=== PATIENT | male | born 1935 | race Caucasian/White ===

== ENCOUNTER → 2018-02-15 | Outpatient (CLI) | payer MEDICARE, OTHER ==
[2018-02-15 13:19] LABS: ABSOLUTE BASOPHILS # (AUTO) 0.1 10^3/uL (0.0-0.2); ABSOLUTE EOSINOPHILS # (AUTO) 0.2 10^3/uL (0.0-0.6); ABSOLUTE LYMPHOCYTES (AUTO) 2.6 10^3/uL (0.5-4.7); ABSOLUTE MONOCYTES (AUTO) 0.6 10^3/uL (0.1-1.4); ABSOLUTE NEUT (AUTO) 3.8 10^3/uL (1.7-8.2); BASOPHILS % (AUTO) 0.7 % (0-2); EOSINOPHILS % (AUTO) 2.6 % (0-6); HEMATOCRIT 41.1 % (37.9-51.0); HEMOGLOBIN 13.2 g/dL (13.5-17.0); LYMPHOCYTES % (AUTO) 35.9 % (13-45); MEAN CORPUSCULAR HEMOGLOBIN 28.3 pg (27.0-33.4); MEAN CORPUSCULAR HGB CONC 32.1 g/dL (32.0-36.0); MEAN CORPUSCULAR VOLUME 88 fl (80-97); MONOCYTES % (AUTO) 7.8 % (3-13); PLATELET COUNT 112 10^3/uL (150-450); RED BLOOD COUNT 4.67 10^6/uL (4.35-5.55); RED CELL DISTRIBUTION WIDTH 16.3 % (11.5-14.0); TOTAL CELLS COUNTED % (AUTO) 100 %; WHITE BLOOD COUNT 7.1 10^3/uL (4.0-10.5)
[2018-02-15 13:48] LABS: ALBUMIN 4.1 g/dL (3.5-5.0); ANION GAP 12 (5-19); BLOOD UREA NITROGEN 42 mg/dL (7-20); CALCIUM 9.1 mg/dL (8.4-10.2); CARBON DIOXIDE 31 mmol/L (22-30); CHLORIDE 99 mmol/L (98-107); GLUCOSE 279 mg/dL (75-110); POTASSIUM 4.4 mmol/L (3.6-5.0); SODIUM 141.6 mmol/L (137-145)
[2018-02-15 13:51] LABS: APPEARANCE,URINE CLEAR; BILIRUBIN,URINE NEGATIVE (NEGATIVE); COLOR,URINE YELLOW; GLUCOSE, URINE >=500 mg/dL (NEGATIVE); KETONES,URINE NEGATIVE (NEGATIVE); LEUKOCYTE ESTERASE,URINE NEGATIVE (NEGATIVE); NITRITE,URINE NEGATIVE (NEGATIVE); PROTEIN,URINE >=500 mg/dL (NEGATIVE); URINE SPECIFIC GRAVITY 1.016
[2018-02-15 15:01] LABS: UR PRO/CREAT RATIO RESULT 9.4 mg/mg (0.0-0.2); URINE CREATININE 83.1 mg/dL (22-328); URINE PROTEIN 778.6 mg/dL (<12)
[2018-02-15 15:04] LABS: ERYTHROCYTE SEDIMENTATION RATE 44 mm/hr (0-20)
[2018-02-16 07:42] LABS: COMPLEMENT C3 120 mg/dL (82-167); COMPLEMENT C4 21 mg/dL (14-44); HEPATITIS C VIRUS AB <0.1 s/co ratio (0.0-0.9)
[2018-02-16 11:15] LABS: GLOMERULAR BASMENT MEMBRANE AB 4 units (0-20)
[2018-02-16 16:39] LABS: A/G RATIO 0.9 (0.7-1.7); ALBUMIN 2 3.4 g/dL (2.9-4.4); ALPHA-2-GLOBULIN 2 0.8 g/dL (0.4-1.0); BETA GLOBULINS 1.2 g/dL (0.7-1.3); GAMMA GLOBULIN 1.7 g/dL (0.4-1.8); MONOCLONAL SPIKE Not Observed g/dL (Not Observed); PROTEIN TOTAL SERUM 7.4 g/dL (6.0-8.5)
[2018-02-16 17:37] LABS: ANTIMYELOPEROXIDASE (MPO) AB <9.0 U/mL (0.0-9.0); ANTIPROTEINASE 3 (PR-3) AB <3.5 U/mL (0.0-3.5); CYTOPLASMIC (C-ANCA) <1:20 titer (Neg:<1:20)
[2018-02-17 08:15] LABS: ATYPICAL PANCA <1:20 titer (Neg:<1:20); PERINUCLEAR (P-ANCA) <1:20 titer (Neg:<1:20)
== END ==
LOC: OD 11:48
PROVIDERS: ATTEND Internal Medicine Nephrology
DX: N18.4 Chronic kidney disease, stage 4 (severe) (principal); D64.9 Anemia, unspecified; R80.9 Proteinuria, unspecified; E11.9 Type 2 diabetes mellitus without complications
CPT/HCPCS: 36415; 80048; 81001; 82040; 82306; 82570; 82595; 83516; 83970; 84100; 84156; 84165; 85025; 85652; 86038; 86160; 86256; 86317; 86803; 86804

== ENCOUNTER 2018-02-25 23:32 | Emergency (ER) | payer MEDICARE, OTHER ==
--- NOTE | 2018-02-26 01:13 | ER Document Report ---
ED General - General Chief Complaint: Other Stated Complaint: EVALUATION Time Seen by Provider: 02/26/18 00:27 Notes: Patient is an 82-year-old male who is brought to the ER by his family because he got an argument with his about taking his insulin. Paramax arrived he did eventually take his Lantus. According to the and other family member the patient has been agitated hard to deal with and this has been progressively worsening for 6 months. Not sure if he actually has dementia or not. Has not been formally diagnosed. He went to the vocational rehabilitation counselor today who told them to come to the ER for a mental health evaluation. He has no previous history of mental health issues whatsoever. I talked to the patient he says he is just very frustrated because everybody is trying to do stuff for him. He says he is mad because his driver starting gate's license was taken away. He says that he wants to be able do things on his own without other people's help. Denies any recent fevers or illness. He does have a scab over his forehead and nose which she says is not from a fall but where he bumped his head on the bucket for the dehumidifier when he was changing it. Patient does have a cane. His gait has progressively become more unsteady over last 6 months and has had a resting tremor that is progressively worsening. He is followed by Dr. Demarco. Patient's says that Dr. Demarco and says that he is happy to help in any way possible and that she just has to let him know. He is arrange for home health as well as physical therapy. Patient has no other complaints at this time. TRAVEL OUTSIDE OF THE [place] IN LAST 30 DAYS: No - Related Data Allergies/Adverse Reactions: ezetimibe [From Vytorin 10-10] Allergy (Verified 02/21/16 22:15) Unknown reaction simvastatin [From Vytorin 10-10] Allergy (Verified 02/21/16 22:15) Unknown reaction Pqtprno-Izr-Moc Reductase Inhibitor Allergy (Verified 02/21/16 22:15) PANCREATITIS Past Medical History - Social History Smoking Status: Never Smoker Chew tobacco use (# tins/day): No Frequency of alcohol use: None Drug Abuse: None Family History: Reviewed & Not Pertinent Patient has suicidal ideation: No Patient has homicidal ideation: No - Past Medical History Cardiac Medical History: Denies: Hx Heart Attack, Hx Hypertension Pulmonary Medical History: Denies: Hx Asthma Neurological Medical History: Denies: Hx Cerebrovascular Accident, Hx Seizures Endocrine Medical History: Reports: Hx Diabetes Mellitus Type 1, Hx Diabetes Mellitus Type 2 Renal/ Medical History: Denies: Hx Peritoneal Dialysis GI Medical History: Denies: Hx Hepatitis, Hx Hiatal Hernia, Hx Ulcer Musculoskeltal Medical History: Reports Hx Arthritis Infectious Medical History: Denies: Hx Hepatitis Past Surgical History: Reports: Hx Appendectomy, Hx Cardiac Catheterization, Hx Cholecystectomy, Hx Orthopedic Surgery - L foot. Denies: Hx Open Heart Surgery , Hx Pacemaker - Immunizations Hx Diphtheria, Pertussis, Tetanus Vaccination: - >5 Review of Systems - Review of Systems Notes: My Normal Review Basic REVIEW OF SYSTEMS: CONSTITUTIONAL : Denies fever, chills, or sweats. Denies recent illness. EENT: Denies eye, ear, throat, or mouth pain or symptoms. Denies nasal or sinus congestion. CARDIOVASCULAR: Denies chest pain. RESPIRATORY: Denies cough, cold, or chest congestion. Denies shortness of breath, difficulty breathing, or wheezing. GASTROINTESTINAL: Denies abdominal pain. Denies nausea, vomiting, or diarrhea. Denies constipation. Last BM: GENITOURINARY: Denies difficulty urinating, painful urination, burning, frequency, or blood in urine. MUSCULOSKELETAL: Denies neck or back pain or joint pain or swelling. SKIN: Denies rash or skin lesions. NEUROLOGICAL: Denies altered mental status or loss of consciousness. Denies headache. Denies weakness or paralysis or loss of use of either side. Denies problems with gait or speech. Denies sensory or motor loss. Has resting tremor. PSYCHIATRIC: Agitation ALL OTHER SYSTEMS REVIEWED AND NEGATIVE. Physical Exam - Vital signs Vitals: Temp Pulse Resp BP Pulse Ox 98.0 F 51 L 20 152/76 H 93 02/25/18 23:47 02/25/18 23:47 02/25/18 23:47 02/25/18 23:47 02/25/18 23:47 - Notes Notes: General Appearance: Well nourished, alert, cooperative, no acute distress, no obvious discomfort. Patient will answer all my questions appropriately. He does become agitated when I ask him about why he does not want people to help him. Vitals: reviewed, See vital signs table. Head: no swelling or tenderness to the head Eyes: PERRL, EOMI, Conjuctiva clear Mouth: No decreasd moisture Neck: Supple, no neck tenderness, No thyromegaly Lungs: No wheezing, No rales, No rhonci, No accessory muscle use, good air exchange bilaterally. Heart: Normal rate, Regular rythm, No murmur, no rub Abdomen: Normal BS, soft, No rigidity, No abdominal tenderness, No guarding, no rebound, no abdominal masses, no organomegaly Extremities: strength 5/5 in all extremities, good pulses in all extremities, no swelling or tenderness in the extremities, no edema. Skin: warm, dry, appropriate color, no rash Neuro: speech clear, oriented x 3, normal affect, responds appropriately to questions. Cranial nerves II through XII are intact. Distal sensation intact. Patient's gait is very guarded and slow and uses a cane when walking. Patient does stumble someone sitting back down into the wheelchair. Patient does have a resting tremor. Course - Re-evaluation Re-evalutation: 02/27/18 05:17 I do not see any other sources from medical standpoint of confusion or agitation. When I talked the patient he is not really confused he is just agitated and frustrated with the fact that he cannot do everything on his own and he still seems to want to. I talked to the patient and his and their neighbor at length and says he will be more cooperative with his . Also talked to him about his tremor informed him that this is making things worse. 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 They said they will follow-up with her primary care doctor talked to them about further treatment options for this. Patient to return to ER if he has any further concerns. Patient and agree with plan and he will be discharged home. Patient seems more understanding of this and agrees to be cooperative with . Dictation of this chart was performed using voice recognition software; therefore, there may be some unintended grammatical errors. - Vital Signs Vital signs: Temp Pulse Resp BP Pulse Ox 98.0 F 55 L 16 145/72 H 95 02/25/18 23:47 02/26/18 03:10 02/26/18 03:10 02/26/18 03:10 02/26/18 03:10 - Laboratory Result Diagrams: 02/26/18 01:40 02/26/18 01:40 Laboratory results interpreted by me: 02/26/18 02/26/18 01:40 01:40 Hgb 12.8 L RDW 17.3 H Plt Count 136 L Sodium 148.9 H Potassium 5.5 H Chloride 108 H BUN 42 H Creatinine 1.93 H Est GFR ( Amer) 41 L Est GFR (Non-Af Amer) 34 L Glucose 229 H Direct Bilirubin 0.7 H Alkaline Phosphatase 131 H - EKG Interpretation by Me Additional EKG results interpreted by me: 02/26/18 01:52 EKG is reviewed and interpreted by me. EKG has a large amount of baseline artifact probably related to the patient's tremor. The computer reads as atrial fibrillation but that is because the computer is reading a tremor as possible beats. The patient's rhythm strip only to shows that the patient is not in A. fib. Is difficult to tell exactly where the P waves are on this strip. Difficult to tell if the patient has a NH block or not. QRS durations are within normal range. QTc intervals are prolonged. I do not see any obvious ST segment elevation or depression. 02/26/18 02:30 EKG #2 is reviewed and interpreted by me. EKG shows what appears to be sinus bradycardia with a rate of [address] segment elevation or depression. No ischemic T-wave inversions. NH interval is difficult to determine as it is very difficult to see the PE waves. Patient does not have a third-degree block as his there are intervals are irregular. There is no ST segment elevation or depression. QRS duration QTc intervals are within normal range. Discharge - Discharge Clinical Impression: Tremor, Agitation Condition: Good Disposition: HOME, SELF-CARE Additional Instructions: Please continue to utilize the physical therapy and home health. Please follow up with your doctor and talk to them about further medications to help with the tremor. Please return to the ER if you have fevers, vomiting, or have any further concerns.
--- NOTE | 2018-02-26 01:42 | RADIOLOGY REPORT (SQ) ---
EXAM DESCRIPTION: CT HEAD WITHOUT CLINICAL HISTORY: 82 years Male, agitation COMPARISON: 09.26.15 TECHNIQUE: No contrast. Coronal and sagittal reformat. This exam was performed according to our departmental dose-optimization program, which includes automated exposure control, adjustment of the mA and/or kV according to patient size and/or use of iterative reconstruction technique. FINDINGS: No hemorrhage or infarct. No mass, mass effect, or midline shift. Mild cerebral volume loss Brain and extra-axial structures appear otherwise intact. IMPRESSION: No acute findings.
[2018-02-26 02:04] LABS: ALANINE AMINOTRANSFERASE 22 U/L (21-72); ALKALINE PHOSPHATASE 131 U/L (38-126); ANION GAP 11 (5-19); ASPARTATE AMINO TRANSFERASE 26 U/L (17-59); BILIRUBIN,DIRECT 0.7 mg/dL (0.0-0.4); BILIRUBIN,TOTAL 0.8 mg/dL (0.2-1.3); BLOOD UREA NITROGEN 42 mg/dL (7-20); CALCIUM 9.5 mg/dL (8.4-10.2); CARBON DIOXIDE 30 mmol/L (22-30); CHLORIDE 108 mmol/L (98-107); GLUCOSE 229 mg/dL (75-110); POTASSIUM 5.5 mmol/L (3.6-5.0); SODIUM 148.9 mmol/L (137-145); TOTAL PROTEIN 7.5 g/dL (6.3-8.2)
[2018-02-26 02:09] LABS: ABSOLUTE BASOPHILS # (AUTO) 0.1 10^3/uL (0.0-0.2); ABSOLUTE EOSINOPHILS # (AUTO) 0.2 10^3/uL (0.0-0.6); ABSOLUTE LYMPHOCYTES (AUTO) 2.3 10^3/uL (0.5-4.7); ABSOLUTE MONOCYTES (AUTO) 0.7 10^3/uL (0.1-1.4); ABSOLUTE NEUT (AUTO) 3.7 10^3/uL (1.7-8.2); EOSINOPHILS % (AUTO) 2.2 % (0-6); HEMATOCRIT 39.6 % (37.9-51.0); HEMOGLOBIN 12.8 g/dL (13.5-17.0); LYMPHOCYTES % (AUTO) 33.2 % (13-45); MEAN CORPUSCULAR HEMOGLOBIN 29.2 pg (27.0-33.4); MEAN CORPUSCULAR HGB CONC 32.4 g/dL (32.0-36.0); MEAN CORPUSCULAR VOLUME 90 fl (80-97); MONOCYTES % (AUTO) 9.5 % (3-13); PLATELET COUNT 136 10^3/uL (150-450); RED BLOOD COUNT 4.38 10^6/uL (4.35-5.55); RED CELL DISTRIBUTION WIDTH 17.3 % (11.5-14.0); SEGMENTED NEUTROPHILS % (AUTO) 54.1 % (42-78); TOTAL CELLS COUNTED % (AUTO) 100 %; WHITE BLOOD COUNT 6.9 10^3/uL (4.0-10.5)
[2018-02-26 03:12] VITALS: BP 145/72
--- NOTE | 2018-02-26 09:47 | EKG REPORT ---
SEVERITY:- ABNORMAL ECG - ATRIAL FIB LOW VOLTAGE IN FRONTAL LEADS BORDERLINE R WAVE PROGRESSION, ANTERIOR LEADS NONSPECIFIC T ABNORMALITIES, LATERAL LEADS : Confirmed by: Roby Reyes MD 26-Feb-2018 09:46:18
--- NOTE | 2018-02-26 09:47 | EKG REPORT ---
SEVERITY:- ABNORMAL ECG - ATRIAL FIBRILLATION LOW VOLTAGE THROUGHOUT ABNRM R PROG, CONSIDER ASMI OR LEAD PLACEMENT BORDERLINE T ABNORMALITIES, ANTERIOR LEADS : Confirmed by: Roby Reyes MD 26-Feb-2018 09:47:12
== END 2018-02-26 03:12 | disposition home or self-care (01) ==
LOC: ER 23:32
DX: R25.1 Tremor, unspecified (principal); R45.1 Restlessness and agitation; E11.9 Type 2 diabetes mellitus without complications; Z79.4 Long term (current) use of insulin
CPT/HCPCS: 36415; 70450; 80053; 84484; 85025; 93005; 93010; 99285

== ENCOUNTER 2018-03-11 13:49 | Inpatient (IN) | payer MEDICARE, OTHER ==
--- NOTE | 2018-03-11 14:32 | ER Document Report ---
ED General - General Stated Complaint: LOW HEART RATE Time Seen by Provider: 03/11/18 14:08 Mode of Arrival: Medic Information source: Patient, Relative, [facility] Records Notes: 82-year-old male with history of hypertension, diabetes, reported known bradycardia presents via EMS from home after his home health aide found his heart rate to be in the 40s. Upon my exam patient is expressing frustration. He is banging his cane on the bed. He states that he has always had a low heart rate. He denies any associated symptoms including shortness of breath, chest pain, dizziness, nausea, vomiting, abdominal pain. Patient states that he was recently placed on a new blood pressure medication at the beginning of this month. He is currently taking lisinopril and hydrochlorothiazide. He is unclear what dosing he is taking. Patient's primary care physician is Dr. Benitez. He does not currently have a fitness management director. Patient is alert and oriented to self and place. He states it is January 1989. TRAVEL OUTSIDE OF THE [place] IN LAST 30 DAYS: No - HPI Onset: Just prior to arrival Quality of pain: No pain Pain Level: Denies Associated symptoms: None Exacerbated by: Denies Relieved by: Denies Similar symptoms previously: Yes Recently seen / treated by doctor: Yes - Related Data Allergies/Adverse Reactions: ezetimibe [From Vytorin 10-10] Allergy (Verified 02/21/16 22:15) Unknown reaction simvastatin [From Vytorin 10-10] Allergy (Verified 02/21/16 22:15) Unknown reaction Nbpyvym-Jok-Dpy Reductase Inhibitor Allergy (Verified 02/21/16 22:15) PANCREATITIS Past Medical History - General Information source: Patient, [facility] Records - Social History Smoking Status: Never Smoker Chew tobacco use (# tins/day): No Frequency of alcohol use: None Drug Abuse: None Lives with: Spouse/Significant other Family History: Reviewed & Not Pertinent Patient has suicidal ideation: No Patient has homicidal ideation: No - Past Medical History Cardiac Medical History: Reports: Hx Hypertension, Hx Heart Murmur Denies: Hx Heart Attack Pulmonary Medical History: Denies: Hx Asthma Neurological Medical History: Denies: Hx Cerebrovascular Accident, Hx Seizures Endocrine Medical History: Reports: Hx Diabetes Mellitus Type 1, Hx Diabetes Mellitus Type 2 Renal/ Medical History: Denies: Hx Peritoneal Dialysis GI Medical History: Denies: Hx Hepatitis, Hx Hiatal Hernia, Hx Ulcer Musculoskeltal Medical History: Reports Hx Arthritis Infectious Medical History: Denies: Hx Hepatitis Past Surgical History: Reports: Hx Appendectomy, Hx Cardiac Catheterization, Hx Cholecystectomy, Hx Orthopedic Surgery - L foot. Denies: Hx Open Heart Surgery , Hx Pacemaker - Immunizations Hx Diphtheria, Pertussis, Tetanus Vaccination: - >5 Review of Systems - Review of Systems Notes: Patient denies fever, chills, nausea, vomiting, headache, ear pain, sore throat , cough, chest pain, shortness of breath, abdominal pain, back pain, dysuria, hematuria, rash, SI/HI. Physical Exam - Vital signs Vitals: Temp 97.5 F 03/11/18 13:52 Interpretation: Normal, Hypertensive, Bradycardic - General General appearance: Appears well, Alert In distress: None Notes: PHYSICAL EXAMINATION: GENERAL: Well-appearing, well-nourished and in no acute distress. HEAD: Atraumatic, normocephalic. EYES: Pupils equal round and reactive to light, extraocular movements intact, sclera anicteric, conjunctiva are normal. ENT: Nares patent, oropharynx clear without exudates. Moist mucous membranes. NECK: Normal range of motion, supple without lymphadenopathy LUNGS: Breath sounds clear to auscultation bilaterally and equal. No wheezes rales or rhonchi. Visibly dyspneic. No accessory muscle use HEART: bradycardic ABDOMEN: Soft, nontender, nondistended abdomen. No guarding, no rebound. No masses appreciated. Musculoskeletal: Normal range of motion, 1+ pitting edema. No cyanosis. NEUROLOGICAL: Cranial nerves grossly intact. Normal speech, normal gait. Normal sensory, motor exams PSYCH: Agitated. AO 2 SKIN: Warm, Dry, normal turgor, no rashes or lesions noted. Course - Re-evaluation Re-evalutation: Chest X-Ray 03/11/18 14:23 IMPRESSION: Extensive bibasilar opacities and effusions. Cardiac enlargement without overt failure. Laboratory 03/11/18 03/11/18 03/11/18 13:26 13:26 13:26 WBC 6.6 RBC 4.42 Hgb 12.6 L Hct 39.5 MCV 89 MCH 28.4 MCHC 31.8 L RDW 17.1 H Plt Count 115 L Seg Neutrophils % 64.8 Lymphocytes % 24.7 Monocytes % 9.1 Eosinophils % 0.8 Basophils % 0.6 Absolute Neutrophils 4.3 Absolute Lymphocytes 1.6 Absolute Monocytes 0.6 Absolute Eosinophils 0.1 Absolute Basophils 0.0 Sodium 146.7 H Potassium 6.0 H* Chloride 108 H Carbon Dioxide 26 Anion Gap 13 BUN 57 H Creatinine 1.89 H Est GFR ( Amer) 42 L Est GFR (Non-Af Amer) 34 L Glucose 148 H Calcium 8.9 Magnesium 2.6 H Total Bilirubin 0.6 Direct Bilirubin 0.6 H Neonat Total Bilirubin Not Reportable Neonat Direct Bilirubin Not Reportable Neonat Indirect Bili Not Reportable AST 58 ALT 28 Alkaline Phosphatase 151 H Creatine Kinase 161 CK-MB (CK-2) 3.86 Troponin I 0.016 NT-Pro-B Natriuret Pep 8190 H Total Protein 7.6 Albumin 4.0 03/11/18 14:34 82-year-old male presents from home via EMS after home health found his heart rate to be in the 40s. Upon arrival patient is alert and oriented 2. He is alert to self and place but disoriented to time. Patient was placed on monitoring and evaluation advisor and an EKG was obtained which showed the patient to be an atrial fibrillation at a rate of 45. Patient is currently hypertensive, hypoxic, bradycardic. Patient currently denying any symptoms. He is frustrated because he states 'I have had a low heart rate for my entire life". is not initially at the bedside so the initial history comes from the patient. She did come in and states the patient has been more confused, agitated recently. He is yelling at her in the room. She is on sure if he has a prior diagnosis of atrial fibrillation. He is not under any cardiology care at this time. Has been seen recently by nephrology and placed on Lisinopril/HCTZ at the beginning of this month. Patient with known renal insufficiency, not on dialysis. 03/11/18 15:32 Patient found to be hyperkalemic. K 6.0 increased from 5.5 02/2018. Calcium 1G, insulin IV 10 units and dextrose was administered. Psych consult obtained to assess capacity, ( reports worsening confusion, agitation,) patient agitated and requesting discharge. No diagnosis of dementia. 03/11/18 20:19 Patient found to have new onset congestive heart failure. EKG shows atrial fibrillation is unclear at this time whether patient has prior history. Not documented in our records. CBC shows no leukocytosis and mild anemia. CMP shows potassium of 6.0 and a BUN and creatinine 57 and 1.89. (worsening renal function when compared to labs two weeks prior) Patient was administered Bumex during his ED course. Bedside ultrasound was performed and showed small pericardial effusion and decreased global function. X-ray was obtained and showed pleural effusion, cardiomegaly. Patient was admitted by the hospitalist. 03/12/18 02:11 - Vital Signs Vital signs: Temp Pulse Resp BP Pulse Ox 98.7 F 44 L 16 132/60 H 95 03/11/18 23:08 03/11/18 23:08 03/11/18 23:08 03/11/18 23:08 03/11/18 23:08 - Laboratory Result Diagrams: 03/11/18 13:26 03/11/18 13:26 Laboratory results interpreted by me: 03/11/18 03/11/18 03/11/18 13:26 13:26 13:26 Hgb 12.6 L MCHC 31.8 L RDW 17.1 H Plt Count 115 L Sodium 146.7 H Potassium 6.0 H* Chloride 108 H BUN 57 H Creatinine 1.89 H Est GFR ( Amer) 42 L Est GFR (Non-Af Amer) 34 L Glucose 148 H Magnesium 2.6 H Direct Bilirubin 0.6 H Alkaline Phosphatase 151 H NT-Pro-B Natriuret Pep 8190 H - Diagnostic Test Radiology reviewed: Pending, Image reviewed - EKG Interpretation by Me Rate: Bradycardia Rhythm: A.Fib Procedures - Ultrasound/Bedside Ultrasound/Bedside Time completed: 15:49 - Cardiac ultrasound. Small pericardial effusion. hypodynamic. Poor global function Critical Care Note - Critical Care Note Total time excluding time spent on procedures (mins): 30 - minutes of critical care time spent in direct contact evaluating and reevaluating the patient, treating symptoms, reviewing labs and studies and speaking with family and consultants excluding any procedures Discharge - Discharge Clinical Impression: Renal insufficiency, Hypoxia, Confusion, Hyperkalemia, Pleural effusion, Bradycardia, Acute hypoxemic respiratory failure CHF (congestive heart failure) Qualifiers: Heart failure type: unspecified Heart failure chronicity: unspecified Qualified Code(s): I50.9 - Heart failure, unspecified Atrial fibrillation Qualifiers: Atrial fibrillation type: unspecified Qualified Code(s): I48.91 - Unspecified atrial fibrillation DM hyperosmolarity type II Qualifiers: Diabetes mellitus fpc insulin use: unspecified fpc insulin use status Diabetes mellitus complication detail: without coma Qualified Code(s): E11.00 - Type 2 diabetes mellitus with hyperosmolarity without nonketotic hyperglycemic-hyperosmolar coma ([facility]) Condition: Fair Disposition: ADMITTED INPATIENT Admitting Provider: Hospitalist Unit Admitted: Telemetry
[2018-03-11 14:36] LABS: ABSOLUTE EOSINOPHILS # (AUTO) 0.1 10^3/uL (0.0-0.6); ABSOLUTE LYMPHOCYTES (AUTO) 1.6 10^3/uL (0.5-4.7); ABSOLUTE MONOCYTES (AUTO) 0.6 10^3/uL (0.1-1.4); ABSOLUTE NEUT (AUTO) 4.3 10^3/uL (1.7-8.2); BASOPHILS % (AUTO) 0.6 % (0-2); EOSINOPHILS % (AUTO) 0.8 % (0-6); HEMATOCRIT 39.5 % (37.9-51.0); HEMOGLOBIN 12.6 g/dL (13.5-17.0); LYMPHOCYTES % (AUTO) 24.7 % (13-45); MEAN CORPUSCULAR HEMOGLOBIN 28.4 pg (27.0-33.4); MEAN CORPUSCULAR HGB CONC 31.8 g/dL (32.0-36.0); MEAN CORPUSCULAR VOLUME 89 fl (80-97); MONOCYTES % (AUTO) 9.1 % (3-13); PLATELET COUNT 115 10^3/uL (150-450); RED BLOOD COUNT 4.42 10^6/uL (4.35-5.55); RED CELL DISTRIBUTION WIDTH 17.1 % (11.5-14.0); SEGMENTED NEUTROPHILS % (AUTO) 64.8 % (42-78); TOTAL CELLS COUNTED % (AUTO) 100 %; WHITE BLOOD COUNT 6.6 10^3/uL (4.0-10.5)
[2018-03-11 14:44] LABS: ALANINE AMINOTRANSFERASE 28 U/L (21-72); ALKALINE PHOSPHATASE 151 U/L (38-126); ANION GAP 13 (5-19); ASPARTATE AMINO TRANSFERASE 58 U/L (17-59); BILIRUBIN,DIRECT 0.6 mg/dL (0.0-0.4); BILIRUBIN,TOTAL 0.6 mg/dL (0.2-1.3); BLOOD UREA NITROGEN 57 mg/dL (7-20); CALCIUM 8.9 mg/dL (8.4-10.2); CARBON DIOXIDE 26 mmol/L (22-30); CHLORIDE 108 mmol/L (98-107); CREATINE KINASE 161 U/L (55-170); GLUCOSE 148 mg/dL (75-110); SODIUM 146.7 mmol/L (137-145); TOTAL PROTEIN 7.6 g/dL (6.3-8.2)
[2018-03-11] MEDS ORDERED: CALCIUM GLUCONATE 1000 MG/10 ML INJ IV ONE (14:54)
[2018-03-11 14:55] LABS: CREATINE KINASE MB 3.86 ng/mL (<4.55); TROPONIN I 0.016 ng/mL
[2018-03-11] MEDS ORDERED: DEXTROSE 50%-WATER 25 GM/50 ML DISP.SYRIN IV ONE (14:55)
[2018-03-11] MEDS ORDERED: INSULIN REG, HUMAN 100 UNIT/ML 3 ML VIAL (PYX) IV ONE (14:55)
--- NOTE | 2018-03-11 15:16 | RADIOLOGY REPORT (SQ) ---
EXAM DESCRIPTION: CHEST 2 VIEWS COMPLETED DATE/TIME: 03/11/2018 3:00 pm REASON FOR STUDY: mara sob COMPARISON: 03/05/2009 EXAM PARAMETERS: NUMBER OF VIEWS: two views TECHNIQUE: Digital Frontal and Lateral radiographic views of the chest acquired. RADIATION DOSE: NA LIMITATIONS: none FINDINGS: LUNGS AND PLEURA: Extensive bibasilar opacities and large bilateral pleural effusions. No pneumothorax. MEDIASTINUM AND HILAR STRUCTURES: No masses or contour abnormalities. HEART AND VASCULAR STRUCTURES: Heart enlarged. No overt failure. BONES: No acute findings. HARDWARE: None in the chest. OTHER: No other significant finding. IMPRESSION: Extensive bibasilar opacities and effusions. Cardiac enlargement without overt failure. TECHNICAL DOCUMENTATION: JOB ID: [id number] [employer]- All Rights Reserved Reading location - IP/workstation name: [email or web address]
[2018-03-11] MEDS ORDERED: BUMETANIDE INJ/PF 1 MG/4 ML SDV IV ONE (15:31)
[2018-03-11] MEDS ORDERED: NORMAL SALINE 250 ML with FUROSEMIDE 250 MG IV PRN ×2 (16:19)
[2018-03-11] MEDS ORDERED: ACETAMINOPHEN 325 MG TABLET PO PRN (16:19)
[2018-03-11] MEDS ORDERED: SODIUM POLYSTYRENE SULFONATE 15 GM/60 ML PO ONE (16:37)
[2018-03-11] MEDS ORDERED: DEXTROSE 50%-WATER 25 GM/50 ML DISP.SYRIN IV PRN ×2 (16:43)
[2018-03-11] MEDS ORDERED: DEXTROSE 40% GEL 15 GM TUBE PO PRN ×2 (16:43)
[2018-03-11] MEDS ORDERED: GLUCAGON,HUMAN RECOMB 1 MG INJ IM PRN (16:43)
--- NOTE | 2018-03-11 16:55 | PDOC H&P ---
History of Present Illness Admission Date/PCP: 03/11/18 16:01 ASIM CARL MD Patient complains of: Bradycardia History of Present Illness: TIARA MILAN is a 82 year old male sent in by his home health care nurse for heart rates in the 40s. He denies any chest pain, shortness of breath, cardiac history. Does not recall ever being told that he had atrial fibrillation. He states that he has always had a low heart rate and murmur. States she always has swelling in his legs. Both he and his are very poor historians. They do not agree on what year it is but they both agree it is in the 1980s. Apparently his Lasix was stopped by someone perhaps 2 weeks ago. Unclear why. Past Medical History Cardiac Medical History: Reports: Hypertension, Heart Murmur Denies: Atrial Fibrillation, Congestive Heart Failure, Myocardial Infarction Pulmonary Medical History: Denies: Asthma EENT Medical History: Reports: Cataracts Neurological Medical History: Denies: Seizures Endocrine Medical History: Reports: Diabetes Mellitus Type 2 Denies: Hyperthyroidism Renal/ Medical History: Reports: Chronic Kidney Disease GI Medical History: Denies: Hepatitis, Hiatal Hernia Musculoskeltal Medical History: Reports: Arthritis Psychiatric Medical History: Reports: Post Traumatic Stress Disorder Hematology: Denies: Anemia, Sickle Cell Disease Past Surgical History Past Surgical History: Reports: Appendectomy, Cardiac Catheterization, Cholecystectomy, Orthopedic Surgery - L foot Denies: Pacemaker Social History Information Source: Patient, Relative Lives with: Spouse/Significant other Smoking Status: Never Smoker Frequency of Alcohol Use: Rare Hx Recreational Drug Use: No - Advance Directive Resuscitation Status: Full Code Surrogate healthcare decision maker:: His Family History Family History: Reviewed & Not Pertinent Parental Family History Reviewed: Yes - I was unable to get any meaningful information Children Family History Reviewed: No Sibling(s) Family History Reviewed.: No Medication/Allergy Home Medications: Cholecalciferol (Vitamin D3) [Vitamin D3 1000 unit Chewable Tablet] 2,000 unit PO DAILY 03/11/18 Gabapentin [Neurontin 300 mg Capsule] 300 mg PO DAILY 03/11/18 Gabapentin [Neurontin 300 mg Capsule] 600 mg PO QHS 03/11/18 Levothyroxine Sodium [Synthroid 0.075 mg Tablet] 0.075 mg PO DAILY 03/11/18 Lisinopril/Hydrochlorothiazide [Lisinopril-Hctz 10-12.5 mg Tab] 1 tab PO DAILY 03/11/18 Pramipexole Di-HCl [Mirapex 0.25 Mg Tablet] 0.25 mg PO QHS 03/11/18 Allergies/Adverse Reactions: ezetimibe [From Vytorin 10-10] Allergy (Verified 02/21/16 22:15) Unknown reaction simvastatin [From Vytorin 10-10] Allergy (Verified 02/21/16 22:15) Unknown reaction Luspuar-Zqi-Vmo Reductase Inhibitor Allergy (Verified 02/21/16 22:15) PANCREATITIS Review of Systems All systems: reviewed and no additional remarkable complaints except as stated Physical Exam Vital Signs: Temp Pulse Resp BP Pulse Ox 97.5 F 15 185/78 H 99 03/11/18 13:52 03/11/18 16:01 03/11/18 16:01 03/11/18 16:00 General appearance: PRESENT: no acute distress, obese Extremities exam: PRESENT: +1 edema - Below the knees bilaterally Neurological exam: PRESENT: alert, oriented to person, oriented to place, CN II- XII grossly intact. ABSENT: oriented to time, oriented to situation, motor sensory deficit Psychiatric exam: PRESENT: appropriate affect Skin exam: PRESENT: dry, warm Results Impressions: Chest X-Ray 03/11/18 14:23 IMPRESSION: Extensive bibasilar opacities and effusions. Cardiac enlargement without overt failure. Assessment & Plan - Diagnosis (1) Acute hypoxemic respiratory failure Is this a current diagnosis for this admission?: Yes Plan: Presumably due to heart failure plus/minus renal failure (2) Bradycardia Is this a current diagnosis for this admission?: Yes Plan: Unclear chronicity. I would think his home health nurse would know if he had chronic bradycardia. He seems to have very little insight and somewhat reflexively denies any problem. Will monitor on telemetry (3) Hyperkalemia Is this a current diagnosis for this admission?: Yes Plan: I will give him a dose of Kayexalate. He will be getting Lasix. Recheck in the morning (4) CHF (congestive heart failure) Qualifiers: Heart failure type: unspecified Heart failure chronicity: unspecified Qualified Code(s): I50.9 - Heart failure, unspecified Is this a current diagnosis for this admission?: Yes Plan: Clinically he is in heart failure. I have no further information at this time. We will get an echo, diurese him-I will put him on a Lasix drip because of his renal failure. Consult cardiology (5) DM hyperosmolarity type II Qualifiers: Diabetes mellitus computer terminal operator insulin use: unspecified senior living insulin use status Diabetes mellitus complication detail: without coma Qualified Code(s) : E11.00 - Type 2 diabetes mellitus with hyperosmolarity without nonketotic hyperglycemic-hyperosmolar coma ([facility]) Is this a current diagnosis for this admission?: Yes Plan: His reports she is a severe diabetic. His blood sugars are not dramatically elevated currently, and he does not appear to be on any diabetic medications at home. We will monitor with Accu-Cheks and cover him with sliding scale insulin. (6) Dementia Is this a current diagnosis for this admission?: Yes Plan: Would appear to be Alzheimer's (7) Dyslipidemia Is this a current diagnosis for this admission?: Yes Plan: Based on his home medication list. I will check a lipid panel in the morning (8) Pleural effusion Is this a current diagnosis for this admission?: Yes (9) Renal insufficiency Is this a current diagnosis for this admission?: Yes Plan: Unclear severity or chronicity. Monitor labs closely
--- NOTE | 2018-03-11 18:25 | EKG REPORT ---
SEVERITY:- ABNORMAL ECG - ATRIAL FIBRILLATION LATERAL INFARCT, AGE INDETERMINATE CONSIDER ANTEROSEPTAL INFARCT LOW VOLTAGE EKG : Confirmed by: Roby Reyes MD 11-Mar-2018 18:24:44
[2018-03-11] MEDS: NITROGLYCERIN 2% OINTMENT 1 GM PACKET TP SCH (19:58)
[2018-03-11] MEDS: FAMOTIDINE 20 MG TABLET PO SCH (21:48)
[2018-03-11] MEDS: PRAMIPEXOLE DI-HCL 0.25 MG TABLET PO SCH (21:48)
[2018-03-11] MEDS: GABAPENTIN 300 MG CAPSULE PO SCH (21:49)
[2018-03-12] MEDS: NITROGLYCERIN 2% OINTMENT 1 GM PACKET TP SCH ×4 (00:07→17:38)
[2018-03-12 06:20] LABS: ANION GAP 12 (5-19); BLOOD UREA NITROGEN 56 mg/dL (7-20); CALCIUM 8.8 mg/dL (8.4-10.2); CARBON DIOXIDE 27 mmol/L (22-30); CHLORIDE 109 mmol/L (98-107); CHOLESTEROL 91.12 mg/dL (0-200); GLUCOSE 43 mg/dL (75-110); POTASSIUM 5.5 mmol/L (3.6-5.0); SODIUM 147.6 mmol/L (137-145); TRIGLYCERIDES 58 mg/dL (<150)
[2018-03-12 06:31] LABS: DIRECT LDL 45 mg/dL (<100)
[2018-03-12] MEDS ORDERED: LISINOPRIL 10 MG TABLET PO SCH (10:00)
[2018-03-12] MEDS: FAMOTIDINE 20 MG TABLET PO SCH ×2 (10:08→21:56)
[2018-03-12] MEDS: ASPIRIN 81 MG TABLET, ENT COATED PO SCH (10:08)
[2018-03-12] MEDS: LEVOTHYROXINE SODIUM 0.075 MG TABLET PO SCH (10:10)
[2018-03-12] MEDS: ENOXAPARIN SODIUM INJ 30 MG/0.3 ML DISP.SYRIN SUBCUT SCH (10:10)
[2018-03-12] MEDS: GABAPENTIN 300 MG CAPSULE PO SCH ×2 (10:10→21:56)
[2018-03-12] MEDS ORDERED: NORMAL SALINE 250 ML with FUROSEMIDE 250 MG IV PRN ×2 (10:37)
--- NOTE | 2018-03-12 10:49 | PDOC PROGRESS REPORT ---
Subjective Progress Note for:: 03/12/18 Subjective:: Somnolent. Not at all oriented currently. No complaints Reason For Visit: HEART FAILURE Physical Exam Vital Signs: Temp Pulse Resp BP Pulse Ox 97.9 F 39 L 15 130/49 H 98 03/12/18 07:33 03/12/18 07:33 03/12/18 07:33 03/12/18 07:33 03/12/18 07:33 Intake & Output 03/11/18 03/12/18 03/13/18 06:59 06:59 06:59 Intake Total 1046 Output Total 600 Balance 446 Weight 207 lb 14.334 oz General appearance: PRESENT: no acute distress, obese Respiratory exam: PRESENT: rales - A few at the bases bilaterally Cardiovascular exam: PRESENT: bradycardia - And irregular GI/Abdominal exam: PRESENT: soft Extremities exam: PRESENT: +1 edema - Below the knees bilaterally Musculoskeletal exam: PRESENT: normal inspection Neurological exam: PRESENT: other - Very somnolent. Moving all 4 extremities. Skin exam: PRESENT: dry, warm Results Laboratory Results: 03/12/18 05:02 03/12/18 03/12/18 05:02 05:02 Sodium 147.6 H Potassium 5.5 H Chloride 109 H Carbon Dioxide 27 Anion Gap 12 BUN 56 H Creatinine 1.77 H Est GFR ( Amer) 45 L Est GFR (Non-Af Amer) 37 L Glucose 43 L Calcium 8.8 Magnesium 2.5 H Triglycerides 58 Cholesterol 91.12 LDL Cholesterol Direct 45 VLDL Cholesterol 12.0 HDL Cholesterol 34 L TSH 3.82 03/12/18 05:02 NT-Pro-B Natriuret Pep 8740 H Impressions: Chest X-Ray 03/11/18 14:23 IMPRESSION: Extensive bibasilar opacities and effusions. Cardiac enlargement without overt failure. Assessment & Plan - Diagnosis (1) Acute hypoxemic respiratory failure Is this a current diagnosis for this admission?: Yes Plan: Presumably due to heart failure plus/minus renal failure. (2) Bradycardia Is this a current diagnosis for this admission?: Yes Plan: Unclear chronicity. I would think his home health nurse would know if he had chronic bradycardia. He seems to have very little insight and somewhat reflexively denies any problem. Will continue to monitor on telemetry. Heart rate is remained in the 30s, though he is essentially asymptomatic. I will not intervene as long as he remains so and await cardiology consult (3) Hyperkalemia Is this a current diagnosis for this admission?: Yes Plan: Improved. Continue Lasix drip which should continue to bring it down (4) CHF (congestive heart failure) Qualifiers: Heart failure type: unspecified Heart failure chronicity: unspecified Qualified Code(s): I50.9 - Heart failure, unspecified Is this a current diagnosis for this admission?: Yes Plan: Clinically he is in heart failure. I have no further information at this time. Echo pending, continue Lasix drip, cardiology consult pending (5) DM hyperosmolarity type II Qualifiers: Diabetes mellitus fpc insulin use: unspecified fpc insulin use status Diabetes mellitus complication detail: without coma Qualified Code(s) : E11.00 - Type 2 diabetes mellitus with hyperosmolarity without nonketotic hyperglycemic-hyperosmolar coma ([facility]) Is this a current diagnosis for this admission?: Yes Plan: Was hypoglycemic after receiving insulin in the emergency department. That has been corrected. Continue to monitor and cover with sliding scale insulin as needed (6) Renal insufficiency Is this a current diagnosis for this admission?: Yes Plan: Tolerating diuresis thus far. Continue to monitor closely (7) Dementia Is this a current diagnosis for this admission?: Yes Plan: Would appear to be Alzheimer's (8) Dyslipidemia Is this a current diagnosis for this admission?: Yes Plan: Based on his home medication list. His LDL is 45 with an HDL of 34 and triglycerides of 58 (9) Pleural effusion Is this a current diagnosis for this admission?: Yes Plan: Presumably from volume overload
--- NOTE | 2018-03-12 12:18 | PDOC CONSULTATION ---
Consultation Consult Date: 03/12/18 Attending physician:: FAUSTINO FITZGERALD Consult reason:: Bradycardia History of Present Illness Admission Date/PCP: 03/11/18 16:01 ASIM CARL MD Patient complains of: Shortness of breath and bradycardia History of Present Illness: TIARA MILAN is a 82 year old male sent in by his home health care nurse for heart rates in the 40s. He denies any chest pain, shortness of breath, cardiac history. Does not recall ever being told that he had atrial fibrillation. He states that he has always had a low heart rate and murmur. States she always has swelling in his legs. Both he and his are very poor historians. They do not agree on what year it is but they both agree it is in the 1980s. Apparently his Lasix was stopped by someone perhaps 2 weeks ago. Unclear why. This history obtained by Dr. Rivera was reviewed and confirmed. Patient claims that he always had a slow heart rate even when he was in his teens. 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 Patient denied any recent syncope or near syncope. As noted above patient is a poor historian. Patient daughter at bedside and agrees that patient is probably somewhat confused but he does make some sense. Patient denied any chest pain. Patient medical doctor is Dr. Guzman and has seen a a or manager previously but he just could not remember the name. Past Medical History Cardiac Medical History: Reports: Hypertension, Heart Murmur, Other - History of slow heartbeat and bradycardia Denies: Atrial Fibrillation, Congestive Heart Failure, Myocardial Infarction Pulmonary Medical History: Denies: Asthma EENT Medical History: Reports: Cataracts Neurological Medical History: Denies: Seizures Endocrine Medical History: Reports: Diabetes Mellitus Type 1, Diabetes Mellitus Type 2 Denies: Hyperthyroidism Renal/ Medical History: Reports: Chronic Kidney Disease GI Medical History: Denies: Hepatitis, Hiatal Hernia Musculoskeltal Medical History: Reports: Arthritis Psychiatric Medical History: Reports: Post Traumatic Stress Disorder Hematology: Denies: Anemia, Sickle Cell Disease Past Surgical History Past Surgical History: Reports: Appendectomy, Cardiac Catheterization, Cholecystectomy, Orthopedic Surgery - L foot Denies: Pacemaker Social History Information Source: Patient Lives with: Spouse/Significant other Smoking Status: Never Smoker Frequency of Alcohol Use: Rare Hx Recreational Drug Use: No Hx Prescription Drug Abuse: No - Advance Directive Resuscitation Status: Full Code Surrogate healthcare decision maker:: Patient's and daughters at the surrogate decision-maker Family History Family History: Reviewed & Not Pertinent Parental Family History Reviewed: Yes Children Family History Reviewed: Yes Sibling(s) Family History Reviewed.: Yes - Jay to be noncontributory Medication/Allergy Home Medications: Cholecalciferol (Vitamin D3) [Vitamin D3 1000 unit Chewable Tablet] 2,000 unit PO DAILY 03/11/18 Gabapentin [Neurontin 300 mg Capsule] 300 mg PO DAILY 03/11/18 Gabapentin [Neurontin 300 mg Capsule] 600 mg PO QHS 03/11/18 Levothyroxine Sodium [Synthroid 0.075 mg Tablet] 0.075 mg PO DAILY 03/11/18 Lisinopril/Hydrochlorothiazide [Lisinopril-Hctz 10-12.5 mg Tab] 1 tab PO DAILY 03/11/18 Pramipexole Di-HCl [Mirapex 0.25 Mg Tablet] 0.25 mg PO QHS 03/11/18 Allergies/Adverse Reactions: ezetimibe [From Vytorin 10-10] Allergy (Verified 02/21/16 22:15) Unknown reaction simvastatin [From Vytorin 10-10] Allergy (Verified 02/21/16 22:15) Unknown reaction Jaqakqr-Oxe-Msf Reductase Inhibitor Allergy (Verified 02/21/16 22:15) PANCREATITIS Review of Systems Review of Systems: Please see history of present illness and past medical history as wall. Constitutional: No fever or chills reported. Head : No recent chronic headaches, recent head injury. Eyes: No recent eye pain, diplopia, redness, discharge, acute visual changes. Ears: No recent chronic ear pain, acute hearing loss, ear discharge. Oral cavity: No recent ulcerations, bleeding, oral cavity discomfort. Neck: No recent acute neck pain reported. Hematologic: No recent easy bruising or bleeding. Lymphatic: No recent lymph node enlargement reported. Cardiovascular system review: See history of present illness. Pedal edema noted. No recent chest pains Respiratory system review: No hemoptysis or blood clots in the lungs reported. Mild Shortness of breath on exertion Gastrointestinal system review: Negative for any recent acute hematemesis, melena. Genitourinary system review: No recent acute or chronic hematuria, flank pain, UTI etc. reported. Skin system review: Negative for any recent abnormal bruising, no rash, no pruritus reported. Neurologic: No prior history of strokes, mini strokes, seizure disorder. Psychologic: No history of major psychosis or major depression reported. Musculoskeletal: Minor aches and pains reported. No acute joint swelling reported. Endocrine: No recent polyuria, polydipsia, recent heat or cold intolerance. Physical Exam Vital Signs: Temp Pulse Resp BP Pulse Ox 97.4 F 38 L 18 143/63 H 98 03/12/18 11:18 03/12/18 11:18 03/12/18 11:18 03/12/18 11:18 03/12/18 11:18 Intake & Output 03/11/18 03/12/18 03/13/18 06:59 06:59 06:59 Intake Total 1046 Output Total 600 Balance 446 Weight 94.3 kg Exam: GENERAL: well-nourished and in no acute distress. Alert and oriented x2, patient not oriented to time. HEAD: Atraumatic, normocephalic. EYES: Pupils equal round and reactive to light, extraocular movements intact, sclera anicteric, conjunctiva are normal. ENT: TMs normal, nares patent, oropharynx clear without exudates. Moist mucous membranes. No oral ulcerations or bleeding gums noted NECK: supple without lymphadenopathy. Trachea is central. No cervical or axillary lymphadenopathy noted. Carotids are 2+, JVD 8-10 cm LUNGS: Respiration seems nonlabored, no significant accessory muscle action noted. Bibasilar fine crackles are noted. No wheezes rales or rhonchi noted. No significant dullness noted on percussion. CHEST: Palpation of the chest wall shows no significant chest wall tenderness. 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 ABDOMEN: Soft, no significant tenderness appreciated, normoactive bowel sounds. No guarding, no rebound. No rigidity noted . No masses appreciated. EXTREMITIES: Pedal pulses are 1-2+, no calf tenderness noted. No clubbing or cyanosis. 1-2+ pedal edema noted NEUROLOGICAL: Focused neurological exam showed no significant neurologic deficit. Normal speech, no focal weakness appreciated. PSYCH: Normal mood, normal affect. Judgment and insight cannot be evaluated. SKIN: No significant ecchymosis, skin is noted to be warm. MUSCULOSKELETAL EXAM: No significant acute joint swelling noted. Results Laboratory Results: 03/12/18 05:02 03/12/18 03/12/18 05:02 05:02 Sodium 147.6 H Potassium 5.5 H Chloride 109 H Carbon Dioxide 27 Anion Gap 12 BUN 56 H Creatinine 1.77 H Est GFR ( Amer) 45 L Est GFR (Non-Af Amer) 37 L Glucose 43 L Calcium 8.8 Magnesium 2.5 H Triglycerides 58 Cholesterol 91.12 LDL Cholesterol Direct 45 VLDL Cholesterol 12.0 HDL Cholesterol 34 L TSH 3.82 03/12/18 05:02 NT-Pro-B Natriuret Pep 8740 H EKG Comments: Low voltage QRS frontal lead, loss of R-wave anterior precordial leads suggestive of prior anterior ND Impressions: Chest X-Ray 03/11/18 14:23 IMPRESSION: Extensive bibasilar opacities and effusions. Cardiac enlargement without overt failure. Assessment & Plan - Diagnosis (1) Bradycardia Is this a current diagnosis for this admission?: Yes (2) CHF (congestive heart failure) Qualifiers: Heart failure type: unspecified Heart failure chronicity: unspecified Qualified Code(s): I50.9 - Heart failure, unspecified Is this a current diagnosis for this admission?: Yes (3) Dementia Is this a current diagnosis for this admission?: Yes (4) Dyslipidemia Is this a current diagnosis for this admission?: Yes (5) Hyperkalemia Is this a current diagnosis for this admission?: Yes (6) Renal insufficiency Is this a current diagnosis for this admission?: Yes (7) Diabetes Qualifiers: Diabetes mellitus type: type 2 Diabetes mellitus marine oil terminal superintendent insulin use: unspecified marine oil terminal superintendent insulin use status Chronic kidney disease stage: unspecified stage Is this a current diagnosis for this admission?: Yes (8) Atrial fibrillation Qualifiers: Atrial fibrillation type: persistent Qualified Code(s): I48.1 - Persistent atrial fibrillation Is this a current diagnosis for this admission?: Yes - Notes Notes: Bradycardia: Patient noted to have severe bradycardia. Possibly related to underlying conduction system disorder. Patient currently unable to decide whether he would want to be transferred out or not. Patient currently declining to have a pacemaker placed but he is also noted to be confused. We are waiting for family members to help him make that decision. Patient in view of CHF would benefit from a pacemaker placement. Type of pacemaker placement suggests biventricular or just RV lead would depend on his underlying LVEF. A stat 2D echo has been ordered. Congestive heart failure: Patient noted to have bilateral pleural effusion. BNP also elevated. At this point agree with diuretic therapy. Dementia: Currently stable. Dyslipidemia: Currently stable. Atrial fibrillation: Currently bradycardic. Do not feel patient is a satisfactory candidate for chronic anticoagulation. Patient is at increased risk of stroke. Hyperkalemia: Recommend aggressive treatment of hyperkalemia. Hyperkalemia could be causing bradycardia however potassium is only at 5.5. Renal insufficiency: Possibly related to diabetic nephropathy. - Time Time Spent: 30 to 50 Minutes - CODE STATUS was discussed, patient remains full code. Surrogate decision-maker unchanged. Multiple medical problems were addressed. More than 50% of the time spent coordinating care, discussing management plans with involved caregivers. Management plans discussed with involved personnels. Medical decision making was of moderate to high complexity , patient's has multiple comorbidities. Medications reviewed and adjusted accordingly: Yes
[2018-03-12] MEDS: HYDRALAZINE HCL 25 MG TABLET PO SCH ×2 (13:26→21:57)
--- NOTE | 2018-03-12 16:20 | XCELERA REPORT ---
[address] [address] Transthoracic Echocardiogram Report Name: TIARA MILAN Age: 82 yrs Gender: Male : 1935 Patient Status: Inpatient Patient Location: [address] [place] [address] Study Date: 03/12/2018 02:41 PM Height: 66 in Weight: 207 lb BSA: 2.0 m2 Procedure: A complete two-dimensional transthoracic echocardiogram was performed (2D, M-mode, spectral and color flow Doppler). The study was technically adequate with some images being suboptimal in quality. Reason For Study: afib, chf Ordering Physician: ROLAND VINES Performed By: Latisha Crabtree Interpretation Summary The left ventricular ejection fraction is normal. Doppler measurements suggest pseudonormalized left ventricular relaxation, which is associated with grade II/IV or mild to moderate diastolic dysfunction The left ventricle is grossly normal size. There is borderline concentric left ventricular hypertrophy. Wall motion cannot be accurately commented on, but no definite regional wall motion abnormalities noted. The right ventricle is mildly dilated. The right ventricular systolic function is normal. The right atrium is mildly dilated. The left atrium is mildly dilated. There is a mild amount of mitral regurgitation There is no mitral valve stenosis. There is no aortic valve stenosis No aortic regurgitation is present. There is a moderate amount of tricuspid regurgitation There is servere pulmonary hypertension by echo Right ventricular systolic pressure is estimated to be elevated at >60mmHg. The aortic root is not well visualized but is probably normal size. The inferior vena cava appeared normal and decreased < 50% with respiration (RAP 10-15 mmHg) There is no pericardial effusion. MMode/2D Measurements & Calculations RVDd: 3.6 cm LVIDd: 4.0 cm FS: 31.7 % Ao root diam: 3.3 cm IVSd: 1.0 cm LVIDs: 2.8 cm EDV(Teich): 71.5 ml LVPWd: 0.96 cmESV(Teich): 28.5 ml Ao root area: 8.4 cm2 EF(Teich): 60.2 % LA dimension: 4.1 cm LVOT diam: 2.2 cm LVOT area: 3.7 cm2 Doppler Measurements & Calculations MV E max daysi: MV P1/2t max daysi: Ao V2 max: LV V1 max P.1 cm/sec 69.6 cm/sec 99.4 cm/sec 2.3 mmHg MV A max daysi: MV P1/2t: 102.7 msec Ao max PG: LV V1 max: 24.7 cm/sec MVA(P1/2t): 2.1 cm2 4.0 mmHg 76.0 cm/sec MV E/A: 2.8 MV dec slope: SUZAN(V,D): 2.8 cm2 198.6 cm/sec2 PA V2 max: PI end-d daysi: TR max daysi: 67.9 cm/sec 71.9 cm/sec 362.7 cm/sec PA max PG: TR max P.8 mmHg 52.6 mmHg Left Ventricle The left ventricle is grossly normal size. There is borderline concentric left ventricular hypertrophy. The left ventricular ejection fraction is normal. Doppler measurements suggest pseudonormalized left ventricular relaxation, which is associated with grade II/IV or mild to moderate diastolic dysfunction. Wall motion cannot be accurately commented on, but no definite regional wall motion abnormalities noted. Right Ventricle The right ventricle is mildly dilated. There is normal right ventricular wall thickness. The right ventricular systolic function is normal. Atria The right atrium is mildly dilated. The left atrium is mildly dilated. Interarterial septum not well visualized and not well dopplered. Cannot comment on ASD/PFO presence. Mitral Valve The mitral valve is grossly normal. There is no mitral valve stenosis. There is a mild amount of mitral regurgitation. Aortic Valve The aortic valve is not well visualized secondary to technical limitations. There is no aortic valve stenosis. No aortic regurgitation is present. Tricuspid Valve The tricuspid valve is not well visualized, but is grossly normal. There is no tricuspid stenosis. There is a moderate amount of tricuspid regurgitation. There is servere pulmonary hypertension by echo. Right ventricular systolic pressure is estimated to be elevated at >60mmHg. Pulmonic Valve The pulmonic valve is not well visualized. Great Vessels The aortic root is not well visualized but is probably normal size. The inferior vena cava appeared normal and decreased < 50% with respiration (RAP 10-15 mmHg). Effusions There is no pericardial effusion. : ROLAND VINES > Ya Alves
[2018-03-12] MEDS ORDERED: LIOTHYRONINE SODIUM 5 MCG TABLET PO ONE (17:00)
[2018-03-12] MEDS ORDERED: LIOTHYRONINE SODIUM 5 MCG TABLET ONE (17:50)
[2018-03-12] MEDS ORDERED: SODIUM POLYSTYRENE SULFONATE 15 GM/60 ML PO ONE (20:00)
[2018-03-12] MEDS: PRAMIPEXOLE DI-HCL 0.25 MG TABLET PO SCH (21:56)
[2018-03-12] MEDS: INSULIN LISPRO 100 UNIT/ML 3 ML VIAL SUBCUT PRN (21:57)
[2018-03-13] MEDS: NITROGLYCERIN 2% OINTMENT 1 GM PACKET TP SCH ×3 (00:55→12:23)
[2018-03-13] MEDS ORDERED: LIOTHYRONINE SODIUM 5 MCG TABLET PO SCH (06:00)
[2018-03-13 06:25] LABS: ALBUMIN 3.6 g/dL (3.5-5.0); BLOOD UREA NITROGEN 59 mg/dL (7-20); CALCIUM 8.7 mg/dL (8.4-10.2); CARBON DIOXIDE 29 mmol/L (22-30); CHLORIDE 104 mmol/L (98-107); GLUCOSE 149 mg/dL (75-110); PHOSPHORUS 4.8 mg/dL (2.5-4.5)
[2018-03-13 06:31] LABS: ANION GAP 10 (5-19); SODIUM 142.8 mmol/L (137-145)
[2018-03-13] MEDS: HYDRALAZINE HCL 25 MG TABLET PO SCH ×2 (06:43→13:21)
[2018-03-13] MEDS ORDERED: LIOTHYRONINE SODIUM 5 MCG TABLET PO ONE (10:00)
[2018-03-13] MEDS: LEVOTHYROXINE SODIUM 0.075 MG TABLET PO SCH (10:01)
[2018-03-13] MEDS: ASPIRIN 81 MG TABLET, ENT COATED PO SCH (10:01)
[2018-03-13] MEDS: ENOXAPARIN SODIUM INJ 30 MG/0.3 ML DISP.SYRIN SUBCUT SCH (10:01)
[2018-03-13] MEDS: GABAPENTIN 300 MG CAPSULE PO SCH (10:01)
[2018-03-13] MEDS: FAMOTIDINE 20 MG TABLET PO SCH (10:01)
[2018-03-13] MEDS ORDERED: SODIUM POLYSTYRENE SULFONATE 15 GM/60 ML PO ONE (10:47)
--- NOTE | 2018-03-13 11:03 | PDOC DISCHARGE SUMMARY ---
General - Admit/Disc Date/PCP Admission Date/Primary Care Provider: 03/11/18 16:01 ASIM CARL MD Discharge Date: 03/13/18 - Discharge Diagnosis (1) Acute hypoxemic respiratory failure Is this a current diagnosis for this admission?: Yes Summary: Improving on a Lasix drip. (2) Bradycardia Is this a current diagnosis for this admission?: Yes Summary: Patient was seen in consultation by Dr. Alves of cardiology who recommended that the patient be transferred to [place] for a possible pacemaker. (3) Hyperkalemia Is this a current diagnosis for this admission?: Yes Summary: Improved with Lasix and Kayexalate. Still at the high end. I will repeat Kayexalate. (4) CHF (congestive heart failure) Is this a current diagnosis for this admission?: Yes Summary: Mostly right-sided due to pulmonary hypertension (5) DM hyperosmolarity type II Is this a current diagnosis for this admission?: Yes Summary: Controlled with home medications and sliding scale insulin (6) Renal insufficiency Is this a current diagnosis for this admission?: Yes Summary: Chronic stage III bordering on stage IV. Tolerating diuresis thus far. (7) Dementia Is this a current diagnosis for this admission?: Yes (8) Dyslipidemia Is this a current diagnosis for this admission?: Yes Summary: Medications were continued (9) Pleural effusion Is this a current diagnosis for this admission?: Yes (10) PTSD (post-traumatic stress disorder) Is this a current diagnosis for this admission?: Yes Summary: Makes him unable to tolerate CPAP. - Additional Information Resuscitation Status: Full Code Home Medications: Cholecalciferol (Vitamin D3) [Vitamin D3 1000 unit Chewable Tablet] 2,000 unit PO DAILY 03/11/18 Gabapentin [Neurontin 300 mg Capsule] 300 mg PO DAILY 03/11/18 Gabapentin [Neurontin 300 mg Capsule] 600 mg PO QHS 03/11/18 Levothyroxine Sodium [Synthroid 0.075 mg Tablet] 0.075 mg PO DAILY 03/11/18 Lisinopril/Hydrochlorothiazide [Lisinopril-Hctz 10-12.5 mg Tab] 1 tab PO DAILY 03/11/18 Pramipexole Di-HCl [Mirapex 0.25 Mg Tablet] 0.25 mg PO QHS 04/27/18 History of Present Illness Patient complains of: Bradycardia History of Present Illness: TIARA MILAN is a 82 year old male sent in by his home health care nurse for heart rates in the 40s. He denies any chest pain, shortness of breath, cardiac history. Does not recall ever being told that he had atrial fibrillation. He states that he has always had a low heart rate and murmur. States she always has swelling in his legs. Both he and his are very poor historians. They do not agree on what year it is but they both agree it is in the 1980s. Apparently his Lasix was stopped by someone perhaps 2 weeks ago. Unclear why. Hospital Course Hospital Course: He was started on Lasix drip, seen in consultation by cardiology, they did an echocardiogram which showed grossly normal left ventricle, mildly dilated right ventricle with normal systolic function, and pulmonary hypertension greater than 60 mmHg. He has been monitored on telemetry and has consistently run in the 30s. He states that he is always had a low heart rate, though he does not know exactly how low. His potassium was 6 when he came in. We have treated that with the Lasix drip and additional Kayexalate and it is now down to 5. This has had no effect on his rate or rhythm. After some discussion between the family and Dr. Alves they have decided to proceed with a pacemaker, and they will be transferred to [place] for further evaluation and management. Physical Exam Vital Signs: Temp Pulse Resp BP Pulse Ox 98.3 F 38 L 14 135/51 H 100 03/13/18 07:51 03/13/18 07:51 03/13/18 07:51 03/13/18 07:51 03/13/18 07:51 Intake & Output 03/12/18 03/13/18 03/14/18 06:59 06:59 06:59 Intake Total 1046 1370 Output Total 600 2640 Balance 446 -1270 Weight 207 lb 14.334 oz 211 lb 3.245 oz General appearance: PRESENT: no acute distress, obese Respiratory exam: PRESENT: clear to auscultation migdalia, other - Distant breath sounds Cardiovascular exam: PRESENT: bradycardia, irregular rhythm GI/Abdominal exam: PRESENT: soft Extremities exam: PRESENT: other - Edema has resolved Neurological exam: PRESENT: alert, oriented to person, oriented to place. ABSENT: oriented to time Skin exam: PRESENT: warm Results Laboratory Results: 03/13/18 05:53 03/12/18 03/13/18 05:02 05:53 Sodium 142.8 Potassium 5.0 Chloride 104 Carbon Dioxide 29 Anion Gap 10 BUN 59 H Creatinine 1.93 H Est GFR ( Amer) 41 L Est GFR (Non-Af Amer) 34 L Glucose 149 H Calcium 8.7 Phosphorus 4.8 H Magnesium 2.2 Albumin 3.6 Free T3 pg/mL 2.68 L 03/12/18 03/13/18 05:02 05:53 NT-Pro-B Natriuret Pep 8740 H 8400 H Impressions: Chest X-Ray 03/11/18 14:23 IMPRESSION: Extensive bibasilar opacities and effusions. Cardiac enlargement without overt failure. Qualifiers - * PATIENT BEING DISCHARGED WITH ANY OF THE FOLLOWING DIAGNOSIS: Heart Failure HF Pt being discharged on ACEI for LVEF less than 40%?: No Reason(s) for not prescribing ACEI:: Not indicated HF Pt being discharged on ARBS for LVEF less than 40%?: No Reason(s) for not prescribing ARBS:: Not indicated HF Pt with Afib discharged with Warfarin?: No Reason(s) for not prescribing Warfarin:: Procedure Contraindicated HF Pt discharged on evidence-based Beta Anthony:: No Reason(s) for not prescribing evidence-based Beta Anthony:: Medical Contraindication
--- NOTE | 2018-03-13 12:16 | PDOC PROGRESS REPORT ---
Subjective Progress Note for:: 03/13/18 Subjective:: Patient remains bradycardic but seems to have adequate mentation and vital signs. Telemetry strips shows heart rate mostly in the high 30s and rarely in the low 40s. Patient however tolerating this heart rate well. Patient continues to have significant CHF by objective finding although he is able to lay flat. Patient today gives consent about being transferred to [place]. This regard had talked with Dr. Florencio Nova about this patient in detail last evening. Today he has been put on the list for transfer. Potassium is noted to be 5.0. Reason For Visit: HEART FAILURE Physical Exam Vital Signs: Temp Pulse Resp BP Pulse Ox 98.3 F 38 L 14 135/51 H 100 03/13/18 07:51 03/13/18 07:51 03/13/18 07:51 03/13/18 07:51 03/13/18 07:51 Intake & Output 03/12/18 03/13/18 03/14/18 06:59 06:59 06:59 Intake Total 1046 1370 Output Total 600 2640 Balance 446 -1270 Weight 94.3 kg 95.8 kg Exam: GENERAL: well-nourished and in no acute distress. Alert and oriented x3 HEAD: Atraumatic, normocephalic. EYES: Pupils equal round and reactive to light, extraocular movements intact, sclera anicteric, conjunctiva are normal. ENT: TMs normal, nares patent, oropharynx clear without exudates. Moist mucous membranes. No oral ulcerations or bleeding gums noted NECK: supple without lymphadenopathy. Trachea is central. No cervical or axillary lymphadenopathy noted. Carotids are 2+, JVD 10 cm LUNGS: Respiration seems nonlabored, no significant accessory muscle action noted. Bibasilar fine crackles with few scattered wheezes rales or rhonchi noted. Bilateral mild basal dullness noted on percussion. CHEST: Palpation of the chest wall shows no significant chest wall tenderness. HEART: [place] [employer], No PSH, 1/6 JUNAID aortic area, 1/6 pratt systolic murmur mitral area, no rubs, no gallops. ABDOMEN: Soft, no significant tenderness appreciated, normoactive bowel sounds. No guarding, no rebound. No rigidity noted . No masses appreciated. EXTREMITIES: Pedal pulses are 1-2+, no calf tenderness noted. No clubbing or cyanosis. 1-2+ pedal edema noted NEUROLOGICAL: Focused neurological exam showed no significant neurologic deficit. Normal speech, no focal weakness appreciated. PSYCH: Normal mood, normal affect. Judgment and insight within normal limits. SKIN: No significant ecchymosis, skin is noted to be warm. MUSCULOSKELETAL EXAM: No significant acute joint swelling noted. Results Laboratory Results: 03/13/18 05:53 03/12/18 03/13/18 05:02 05:53 Sodium 142.8 Potassium 5.0 Chloride 104 Carbon Dioxide 29 Anion Gap 10 BUN 59 H Creatinine 1.93 H Est GFR ( Amer) 41 L Est GFR (Non-Af Amer) 34 L Glucose 149 H Calcium 8.7 Phosphorus 4.8 H Magnesium 2.2 Albumin 3.6 Free T3 pg/mL 2.68 L 03/12/18 03/13/18 05:02 05:53 NT-Pro-B Natriuret Pep 8740 H 8400 H EKG Comments: Shows atrial fibrillation with slow heart rate response. Impressions: Chest X-Ray 03/11/18 14:23 IMPRESSION: Extensive bibasilar opacities and effusions. Cardiac enlargement without overt failure. Assessment & Plan - Diagnosis (1) Bradycardia Is this a current diagnosis for this admission?: Yes (2) CHF (congestive heart failure) Qualifiers: Heart failure type: unspecified Heart failure chronicity: unspecified Qualified Code(s): I50.9 - Heart failure, unspecified Is this a current diagnosis for this admission?: Yes (3) Dementia Is this a current diagnosis for this admission?: Yes (4) Dyslipidemia Is this a current diagnosis for this admission?: Yes (5) Hyperkalemia Is this a current diagnosis for this admission?: Yes (6) Renal insufficiency Is this a current diagnosis for this admission?: Yes (7) Diabetes Qualifiers: Diabetes mellitus type: type 2 Diabetes mellitus supervisor intermediates insulin use: unspecified snf insulin use status Chronic kidney disease stage: unspecified stage Is this a current diagnosis for this admission?: Yes (8) Atrial fibrillation Qualifiers: Atrial fibrillation type: persistent Qualified Code(s): I48.1 - Persistent atrial fibrillation Is this a current diagnosis for this admission?: Yes - Notes Notes: Bradycardia: Patient noted to have severe bradycardia. Possibly related to underlying conduction system disorder. In view of CHF patient would benefit from a pacemaker placement. 2D echocardiogram shows normal well-preserved LVEF but RV is mild to moderately enlarged with reduced RVEF. Increase in heart rate is likely to improve RV failure. RV pacing will be very satisfactory. Congestive heart failure: Patient noted to have bilateral pleural effusion. BNP also elevated. At this point agree with diuretic therapy. Dementia: Currently stable. Dyslipidemia: Currently stable. Atrial fibrillation: Currently bradycardic. Do not feel patient is a satisfactory candidate for chronic anticoagulation. Patient is at increased risk of stroke. Hyperkalemia: Recommend aggressive treatment of hyperkalemia. Potassium today at 5.0 but patient still bradycardic without any improvement in heart rate. Renal insufficiency: Possibly related to diabetic nephropathy. - Time Time with patient: Greater than 35 minutes - Significant time spent discussing transfer to [facility]. Questions regarding pacemaker placement discussed. CODE STATUS was discussed, patient remains full code. Surrogate decision-maker unchanged. Multiple medical problems were addressed. More than 50% of the time spent coordinating care, discussing management plans with involved caregivers. Management plans discussed with involved personnels. Medical decision making was of moderate to high complexity, patient's has multiple comorbidities. Medications reviewed and adjusted accordingly: Yes
[2018-03-13] MEDS: INSULIN LISPRO 100 UNIT/ML 3 ML VIAL SUBCUT PRN (13:22)
[2018-03-13 16:15] VITALS: BP 142/67
== END 2018-03-13 16:47 | disposition short-term general hospital (02) | DRG 291 ==
LOC: ER 13:49 → EH 16:01 → 3N 18:45 → 3W 03-12 15:13
PROVIDERS: ADMIT Internal Medicine; ATTEND Internal Medicine
DX: I13.0 Hypertensive heart and chronic kidney disease with heart failure and stage 1 through stage 4 chronic kidney disease, or unspecified chronic kidney disease (principal); J96.01 Acute respiratory failure with hypoxia; E11.00 Type 2 diabetes mellitus with hyperosmolarity without nonketotic hyperglycemic-hyperosmolar coma (NKHHC); I48.1 Persistent atrial fibrillation; R00.1 Bradycardia, unspecified; E87.5 Hyperkalemia; I27.29 Other secondary pulmonary hypertension; I50.810 Right heart failure, unspecified; N18.3 Chronic kidney disease, stage 3 (moderate); E78.5 Hyperlipidemia, unspecified; F43.10 Post-traumatic stress disorder, unspecified; E78.00 Pure hypercholesterolemia, unspecified; M19.90 Unspecified osteoarthritis, unspecified site; R01.1 Cardiac murmur, unspecified; E11.22 Type 2 diabetes mellitus with diabetic chronic kidney disease; G30.9 Alzheimer's disease, unspecified; F02.80 Dementia in other diseases classified elsewhere, unspecified severity, without behavioral disturbance, psychotic disturbance, mood disturbance, and anxiety; Z79.899 Other long term (current) drug therapy; Z98.42 Cataract extraction status, left eye; Z98.41 Cataract extraction status, right eye; Z90.49 Acquired absence of other specified parts of digestive tract; Z88.8 Allergy status to other drugs, medicaments and biological substances
CPT/HCPCS: 36415; 71046; 80048; 80053; 80061; 80069; 82550; 82553; 82962; 83036; 83735; 83880; 84443; 84481; 84484; 85025; 93005; 93010; 93306; 99291; J0610; J1650; J1815; J1940; J3490; J7050